=== PATIENT | male | born 1945 | race Caucasian/White ===

== ENCOUNTER → 2017-08-31 | Outpatient (CLI) | payer MEDICARE ==
[2017-08-31 09:21] LABS: Basophils # (auto) 0.1 uL; Basophils % (auto) 0.9 % (0.0-2.0); Eosinophils # (auto) 0.6 uL; Eosinophils % (auto) 8.2 % (0.0-7.0); Hematocrit 46.1 % (41.0-53.0); Hemoglobin 15.9 g/dL (13.5-17.5); Lymphocytes # (auto) 1.7 uL; Lymphocytes % (auto) 23.2 % (10.0-50.0); Mean Corpuscular Hemoglobin 30.9 pg (28.0-32.0); Mean Corpuscular Hgb Conc. 34.5 g/dL (32.0-36.0); Mean Corpuscular Volume 89.3 fL (80.0-100.0); Monocytes # (auto) 0.4 uL; Monocytes % (auto) 5.6 % (0.0-12.0); Neutrophils # (auto) 4.4 uL; Neutrophils % (auto) 62.1 % (37.0-80.0); Nucleated Red Blood Cells % 0.1 %; Platelet Count (auto) 208 10^3/uL (140-450); Red Blood Cells 5.17 10^6/uL (4.5-5.90); Red Cell Distribution Width 13.5 % (11.8-14.3); White Blood Cell 7.2 10^3/uL (4.4-10.8)
[2017-08-31 09:54] LABS: Albumin 4.1 g/dL (3.4-5.0); BUN/Creatinine Ratio 13.4; Bilirubin, Total 0.8 mg/dL (0.2-1.0); Calcium 8.9 mg/dL (8.5-10.1); Potassium 3.2 mmol/L (3.5-5.1); Total Protein 7.2 g/dL (6.4-8.2)
== END | disposition home or self-care (01) ==
LOC: LAB 08:38
PROVIDERS: ATTEND Nurse Practitioner
DX: E78.5 Hyperlipidemia, unspecified (principal); E11.9 Type 2 diabetes mellitus without complications; Z79.899 Other long term (current) drug therapy
CPT/HCPCS: 36415; 80053; 80061; 82306; 83036; 84443; 85025

== ENCOUNTER → 2018-02-15 | Outpatient (CLI) | payer MEDICARE ==
[2018-02-15 08:06] LABS: Basophils # (auto) 0.1 uL; Eosinophils # (auto) 0.7 uL; Eosinophils % (auto) 10.4 % (0.0-7.0); Hematocrit 47.6 % (41.0-53.0); Hemoglobin 16.2 g/dL (13.5-17.5); Lymphocytes # (auto) 1.4 uL; Lymphocytes % (auto) 20.6 % (10.0-50.0); Mean Corpuscular Hemoglobin 31.3 pg (28.0-32.0); Mean Corpuscular Hgb Conc. 34.1 g/dL (32.0-36.0); Mean Corpuscular Volume 91.8 fL (80.0-100.0); Monocytes # (auto) 0.3 uL; Neutrophils # (auto) 4.3 uL; Platelet Count (auto) 262 10^3/uL (140-450); Red Blood Cells 5.18 10^6/uL (4.5-5.90); Red Cell Distribution Width 14.2 % (11.8-14.3); White Blood Cell 6.9 10^3/uL (4.4-10.8)
[2018-02-15 08:14] LABS: Urine Bacteria FEW /hpf (None Seen); Urine Blood TRACE /uL (Negative); Urine Specific Gravity 1.012 (1.001-1.035); Urine WBC 1 /hpf (0 - 3)
[2018-02-15 08:25] LABS: Albumin 3.7 g/dL (3.4-5.0); BUN/Creatinine Ratio 16.5; Potassium 3.4 mmol/L (3.5-5.1)
[2018-02-15 08:30] LABS: Bilirubin, Total 0.8 mg/dL (0.2-1.0); Total Protein 7.4 g/dL (6.4-8.2)
== END | disposition home or self-care (01) ==
LOC: LAB 07:47
PROVIDERS: ATTEND Nurse Practitioner
DX: E11.9 Type 2 diabetes mellitus without complications (principal); E78.5 Hyperlipidemia, unspecified; J44.9 Chronic obstructive pulmonary disease, unspecified; Z79.899 Other long term (current) drug therapy
CPT/HCPCS: 36415; 80053; 80061; 81001; 82043; 82306; 83036; 85025

== ENCOUNTER 2019-04-21 11:22 | Inpatient (IN) | payer MEDICARE ==
[~2019-04-21] VITALS: Ht 185.4 cm; Wt 97.0 kg
[2019-04-21] MEDS ORDERED: FUROSEMIDE 40 MG/4 ML VIAL IV ONE (11:45)
[2019-04-21 12:11] LABS: Basophils # (auto) 0 uL; Basophils % (auto) 0.6 % (0.0-2.0); Eosinophils # (auto) 0.1 uL; Eosinophils % (auto) 0.9 % (0.0-7.0); Hematocrit 45.5 % (41.0-53.0); Hemoglobin 15.3 g/dL (13.5-17.5); Lymphocytes # (auto) 0.7 uL; Lymphocytes % (auto) 10.3 % (10.0-50.0); Mean Corpuscular Hemoglobin 31.4 pg (28.0-32.0); Mean Corpuscular Hgb Conc. 33.5 g/dL (32.0-36.0); Mean Corpuscular Volume 93.7 fL (80.0-100.0); Monocytes # (auto) 0.4 uL; Monocytes % (auto) 5.5 % (0.0-12.0); Neutrophils # (auto) 5.7 uL; Neutrophils % (auto) 82.7 % (37.0-80.0); Nucleated Red Blood Cells % 0.1 %; Platelet Count (auto) 191 10^3/uL (140-450); Red Blood Cells 4.86 10^6/uL (4.5-5.90); Red Cell Distribution Width 14.1 % (11.8-14.3); White Blood Cell 6.9 10^3/uL (4.4-10.8)
[2019-04-21 12:28] LABS: Albumin 3.8 g/dL (3.4-5.0); Calcium 9.2 mg/dL (8.5-10.1); Magnesium 2.2 mg/dL (1.6-2.6); Potassium 4.3 mmol/L (3.5-5.1)
[2019-04-21 12:34] LABS: Total Protein 7.1 g/dL (6.4-8.2)
[2019-04-21] MEDS ORDERED: ONDANSETRON HCL 4 MG/2 ML VIAL IV PRN (13:00)
[2019-04-21] MEDS ORDERED: NITROGLYCERIN 0.4 MG SL TAB SL PRN (13:00)
[2019-04-21] MEDS ORDERED: MORPHINE SULF INJ 2 MG/ML SYRINGE 1ML IV PRN ×3 (13:00→13:30)
[2019-04-21] MEDS ORDERED: ACETAMINOPHEN 500 MG TAB PO PRN ×2 (13:00→13:30)
[2019-04-21] MEDS ORDERED: hydrALAZINE HCL 20 MG/ML VL IV PRN (13:00)
[2019-04-21] MEDS ORDERED: HYDROcodone-ACET 5/325MG TAB PO PRN ×2 (13:00→13:30)
[2019-04-21] MEDS ORDERED: DEXTROSE (50%) 50ML SYRG IV PRN (13:00)
[2019-04-21] MEDS ORDERED: VANCOMYCIN PER PHARMACY IV SCH (13:30)
[2019-04-21] MEDS: RAMIPRIL 2.5 MG CAP PO SCH (13:42)
[2019-04-21 13:48] LABS: CRP High Sensitivity 1.35 mg/dL (< 0.3)
[2019-04-21] MEDS: metroNIDAZOLE 500MG/100ML 100 ML IV SCH ×2 (14:08→21:56)
[2019-04-21] MEDS: LEVOFLOXACIN 750MG 150 ML IV SCH (15:39)
[2019-04-21 17:18] VITALS: BP 155/101
[2019-04-21 17:38] VITALS: BP 155/101
[2019-04-21] MEDS: VANCOMYCIN 1GM/250ML 250 ML IV SCH (18:19)
[2019-04-21] MEDS: CARVEDILOL 3.125 MG TAB PO SCH (18:20)
[2019-04-21] MEDS: FUROSEMIDE 20 MG/2 ML VIAL IV SCH (18:20)
[2019-04-21] MEDS: ACCU-CHEK COMFORT CURVE STRIP VI SCH ×2 (18:26→21:55)
[2019-04-21] MEDS: InsuLIN REG 1unit/0.01ml Soln (100units/ml) SC SCH ×2 (18:26→21:55)
[2019-04-21] MEDS: ATORVASTATIN 20 MG TAB PO SCH (21:50)
[2019-04-21 22:00] VITALS: BP 125/78
[2019-04-21] MEDS: METOPROLOL TARTRATE 1MG/1ML-5ML VIAL IV SCH ×3 (22:02→22:14)
[2019-04-22] VITALS (7 sets, daily range): BP systolic 103–131; BP diastolic 68–88
[2019-04-22] MEDS: metroNIDAZOLE 500MG/100ML 100 ML IV SCH (05:35)
[2019-04-22] MEDS: FUROSEMIDE 20 MG/2 ML VIAL IV SCH (05:36)
[2019-04-22] MEDS: InsuLIN REG 1unit/0.01ml Soln (100units/ml) SC SCH ×4 (06:23→21:36)
[2019-04-22] MEDS: ACCU-CHEK COMFORT CURVE STRIP VI SCH ×4 (06:23→21:36)
[2019-04-22] MEDS: VANCOMYCIN 1GM/250ML 250 ML IV SCH (08:14)
[2019-04-22] MEDS ORDERED: ADENOSINE 93 MG in GIVE UN-DILUTED 0 ML IV STA (09:30)
[2019-04-22] MEDS: RAMIPRIL 2.5 MG CAP PO SCH (09:37)
[2019-04-22] MEDS: CARVEDILOL 3.125 MG TAB PO SCH ×2 (09:37→17:40)
[2019-04-22] MEDS: FAMOTIDINE 20 MG TAB PO SCH (09:37)
[2019-04-22] MEDS: LEVOFLOXACIN 750MG 150 ML IV SCH (09:42)
[2019-04-22] MEDS ORDERED: CARVEDILOL 3.125 MG TAB PO ONE (11:15)
[2019-04-22] MEDS ORDERED: FUROSEMIDE 20 MG/2 ML VIAL IV ONE (11:15)
[2019-04-22] MEDS ORDERED: FUROSEMIDE 40 MG/4 ML VIAL IV ONE (12:15)
[2019-04-22] MEDS ORDERED: ASPirin 81 mg TAB PO ONE (12:45)
[2019-04-22 13:45] LABS: Alcohol, Urine < 3.0 mg/dL (0-5); Amphetamine Screen, Urine NEGATIVE (NEGATIVE); Barbiturate Scree,Urine NEGATIVE (NEGATIVE); Benzodiazephine Screen, Urine NEGATIVE (NEGATIVE); Cannabinoid Screen, Urine NEGATIVE (NEGATIVE); Cocaine Screen, Urine NEGATIVE (NEGATIVE); Opiate Scree,Urine NEGATIVE (NEGATIVE); Phencyclidine Screen, Urine NEGATIVE (NEGATIVE)
[2019-04-22] MEDS: FUROSEMIDE 40 MG/4 ML VIAL IV SCH (17:39)
[2019-04-22] MEDS ORDERED: FUROSEMIDE 20 MG/2 ML VIAL IV SCH (18:00)
[2019-04-22] MEDS: ATORVASTATIN 20 MG TAB PO SCH (21:36)
[2019-04-23 05:00] VITALS: BP 141/97
[2019-04-23] MEDS: FUROSEMIDE 40 MG/4 ML VIAL IV SCH ×2 (05:31→18:37)
[2019-04-23 06:17] LABS: INR 1.26 (0.9-1.15); Partial Thromboplastin Time 32.2 sec (23.64-32.05)
[2019-04-23 06:26] LABS: Potassium 4.1 mmol/L (3.5-5.1)
[2019-04-23] MEDS: ACCU-CHEK COMFORT CURVE STRIP VI SCH ×4 (06:33→22:00)
[2019-04-23] MEDS: InsuLIN REG 1unit/0.01ml Soln (100units/ml) SC SCH ×4 (06:34→22:00)
[2019-04-23 06:35] LABS: BUN/Creatinine Ratio 25.8; Calcium 8.8 mg/dL (8.5-10.1)
[2019-04-23] MEDS: CARVEDILOL 3.125 MG TAB PO SCH (08:00)
[2019-04-23 09:00] VITALS: BP 140/90
[2019-04-23] MEDS: ENOXAPARIN SOD 40 MG/0.4 ML SYRINGE SC SCH ×2 (10:00→15:45)
[2019-04-23] MEDS: FAMOTIDINE 20 MG TAB PO SCH (10:00)
[2019-04-23] MEDS: ASPirin 81 mg TAB PO SCH ×2 (10:00→15:44)
[2019-04-23] MEDS ORDERED: ACETYLCYSTEINE ORAL for CIN 20%(200MG/ML) 4ML PO SCH (10:00)
[2019-04-23 11:19] LABS: Urine Bacteria NONE SEEN /hpf (None Seen); Urine Blood Negative /uL (Negative); Urine Hyaline Cast FEW /lpf (0 - 2); Urine WBC <1 /hpf (0 - 3)
[2019-04-23] MEDS ORDERED: IODIXANOL 320MG/ML 100ML BTL IV ONE ×2 (11:32→12:24)
[2019-04-23] MEDS ORDERED: LIDOCAINE 2%HCL (LOCAL ANESTH.) INJ 20ML MDV ONE (11:32)
[2019-04-23] MEDS ORDERED: fentaNYL CITRATE 100 MCG/2 ML VL ONE (12:23)
[2019-04-23] MEDS ORDERED: MIDAZOLAM HCL 1MG/1ML-2 ML VIAL ONE (12:24)
[2019-04-23] MEDS ORDERED: SODIUM CHL 0.9% 50 ML ONE (12:24)
[2019-04-23] MEDS ORDERED: ANGIOMAX 250 MG VIAL IV ONE (12:24)
[2019-04-23 14:16] VITALS: BP 129/91
[2019-04-23 15:16] VITALS: BP 141/99
[2019-04-23] MEDS: RAMIPRIL 2.5 MG CAP PO SCH (15:44)
[2019-04-23] MEDS: ACETYLCYSTEINE ORAL for CIN 20%(200MG/ML) 4ML PO SCH ×2 (15:45→22:00)
[2019-04-23 17:00] VITALS: BP 127/84
[2019-04-23] MEDS: ATORVASTATIN 20 MG TAB PO SCH (22:00)
[2019-04-23] MEDS: CARVEDILOL 12.5 MG TAB PO SCH (22:00)
[2019-04-23 22:53] VITALS: BP 133/87
[2019-04-24 05:24] VITALS: BP 117/82
[2019-04-24] MEDS: FUROSEMIDE 40 MG/4 ML VIAL IV SCH (06:20)
[2019-04-24] MEDS: ACCU-CHEK COMFORT CURVE STRIP VI SCH ×4 (06:28→21:51)
[2019-04-24] MEDS: InsuLIN REG 1unit/0.01ml Soln (100units/ml) SC SCH ×4 (06:28→21:52)
[2019-04-24 06:48] LABS: Potassium 4.3 mmol/L (3.5-5.1)
[2019-04-24 06:53] LABS: BUN/Creatinine Ratio 25.4; Calcium 8.7 mg/dL (8.5-10.1)
[2019-04-24 08:38] VITALS: BP 120/85
[2019-04-24] MEDS: FAMOTIDINE 20 MG TAB PO SCH (10:27)
[2019-04-24] MEDS: ASPirin 81 mg TAB PO SCH (10:28)
[2019-04-24] MEDS: CARVEDILOL 12.5 MG TAB PO SCH ×2 (10:28→21:51)
[2019-04-24] MEDS: ENOXAPARIN SOD 40 MG/0.4 ML SYRINGE SC SCH (10:28)
[2019-04-24] MEDS: ACETYLCYSTEINE ORAL for CIN 20%(200MG/ML) 4ML PO SCH ×2 (10:29→22:07)
[2019-04-24 13:00] VITALS: BP_SYST 100; BP_SYST 95; BP_DIAS 59; BP_DIAS 62
[2019-04-24 17:00] VITALS: BP 122/53
[2019-04-24 17:12] LABS: Basophils # (auto) 0 uL; Basophils % (auto) 0.7 % (0.0-2.0); Eosinophils # (auto) 0.1 uL; Eosinophils % (auto) 1.5 % (0.0-7.0); Hematocrit 43.5 % (41.0-53.0); Hemoglobin 14.4 g/dL (13.5-17.5); Lymphocytes # (auto) 0.8 uL; Lymphocytes % (auto) 13.1 % (10.0-50.0); Mean Corpuscular Hemoglobin 31.1 pg (28.0-32.0); Mean Corpuscular Hgb Conc. 33.1 g/dL (32.0-36.0); Mean Corpuscular Volume 93.8 fL (80.0-100.0); Monocytes # (auto) 0.5 uL; Monocytes % (auto) 8.3 % (0.0-12.0); Neutrophils # (auto) 4.9 uL; Neutrophils % (auto) 76.4 % (37.0-80.0); Platelet Count (auto) 167 10^3/uL (140-450); Red Blood Cells 4.64 10^6/uL (4.5-5.90); Red Cell Distribution Width 13.9 % (11.8-14.3); White Blood Cell 6.5 10^3/uL (4.4-10.8)
[2019-04-24 20:10] VITALS: BP 105/63
[2019-04-24] MEDS: ATORVASTATIN 20 MG TAB PO SCH (21:51)
[2019-04-24 22:00] VITALS: BP 105/63
[2019-04-24] MEDS ORDERED: SODIUM CHLORIDE 0.9% 1,000 ML IV SCH (23:00)
[2019-04-25 04:54] VITALS: BP 117/77
[2019-04-25 06:03] LABS: Basophils # (auto) 0 uL; Basophils % (auto) 0.7 % (0.0-2.0); Eosinophils # (auto) 0.1 uL; Hemoglobin 14.3 g/dL (13.5-17.5); Lymphocytes # (auto) 0.9 uL; Lymphocytes % (auto) 13.8 % (10.0-50.0); Mean Corpuscular Hemoglobin 31.3 pg (28.0-32.0); Mean Corpuscular Hgb Conc. 33.2 g/dL (32.0-36.0); Mean Corpuscular Volume 94.4 fL (80.0-100.0); Monocytes # (auto) 0.7 uL; Monocytes % (auto) 10.6 % (0.0-12.0); Neutrophils # (auto) 4.7 uL; Neutrophils % (auto) 72.9 % (37.0-80.0); Nucleated Red Blood Cells % 0.1 %; Platelet Count (auto) 149 10^3/uL (140-450); Red Blood Cells 4.55 10^6/uL (4.5-5.90); Red Cell Distribution Width 13.8 % (11.8-14.3); White Blood Cell 6.5 10^3/uL (4.4-10.8)
[2019-04-25] MEDS: InsuLIN REG 1unit/0.01ml Soln (100units/ml) SC SCH ×4 (06:08→22:18)
[2019-04-25] MEDS: ACCU-CHEK COMFORT CURVE STRIP VI SCH ×4 (06:08→22:12)
[2019-04-25] MEDS: ASPirin 81 mg TAB PO SCH (06:09)
[2019-04-25] MEDS: CARVEDILOL 12.5 MG TAB PO SCH ×2 (06:10→22:09)
[2019-04-25 06:15] LABS: BUN/Creatinine Ratio 30.8; Calcium 8.8 mg/dL (8.5-10.1); Potassium 4.3 mmol/L (3.5-5.1)
[2019-04-25 06:18] LABS: INR 1.26 (0.9-1.15); Partial Thromboplastin Time 30.8 sec (23.64-32.05)
[2019-04-25] MEDS ORDERED: LIDOCAINE 2%HCL (LOCAL ANESTH.) INJ 20ML MDV ONE ×2 (07:10→08:53)
[2019-04-25] MEDS ORDERED: IOHEXOL 350 MG/ML 100ML IJ ONE ×2 (07:10→08:34)
[2019-04-25] MEDS ORDERED: ANGIOMAX 250 MG VIAL IV ONE ×2 (08:22→08:34)
[2019-04-25] MEDS ORDERED: MIDAZOLAM HCL 1MG/1ML-2 ML VIAL ONE (08:22)
[2019-04-25] MEDS ORDERED: fentaNYL CITRATE 100 MCG/2 ML VL ONE (08:22)
[2019-04-25] MEDS ORDERED: SODIUM CHL 0.9% 50 ML ONE ×2 (08:22→08:34)
[2019-04-25] MEDS ORDERED: EPINEPHrine HCL 1 MG/10 ML SYRG ONE (08:33)
[2019-04-25] MEDS ORDERED: DOPamine 1600MCG/ML D5W 0 ML IV ONE (08:42)
[2019-04-25] MEDS ORDERED: IODIXANOL 320MG/ML 100ML BTL IV ONE (09:38)
[2019-04-25] MEDS ORDERED: TICAGRELOR 90 MG TAB ONE (09:52)
[2019-04-25] MEDS: ENOXAPARIN SOD 40 MG/0.4 ML SYRINGE SC SCH (10:00)
[2019-04-25] MEDS: FAMOTIDINE 20 MG TAB PO SCH (10:00)
[2019-04-25] MEDS ORDERED: SODIUM CHLORIDE 0.9% 1,000 ML IV SCH (12:15)
[2019-04-25 17:00] VITALS: BP 123/75
[2019-04-25 22:00] VITALS: BP 109/73
[2019-04-25] MEDS: TICAGRELOR 90 MG TAB PO SCH (22:00)
[2019-04-25] MEDS: ATORVASTATIN 20 MG TAB PO SCH (22:08)
[2019-04-26 05:00] VITALS: BP 105/70
[2019-04-26] MEDS: InsuLIN REG 1unit/0.01ml Soln (100units/ml) SC SCH ×5 (06:43→22:12)
[2019-04-26] MEDS: ACCU-CHEK COMFORT CURVE STRIP VI SCH ×4 (06:43→22:12)
[2019-04-26 06:59] LABS: BUN/Creatinine Ratio 31.5; Calcium 8.6 mg/dL (8.5-10.1); Potassium 4.9 mmol/L (3.5-5.1)
[2019-04-26 09:00] VITALS: BP 102/59
[2019-04-26] MEDS ORDERED: FUROSEMIDE 40 MG/4 ML VIAL IV SCH (10:00)
[2019-04-26] MEDS: CARVEDILOL 12.5 MG TAB PO SCH ×3 (10:00→22:11)
[2019-04-26] MEDS: acetaZOLAMIDE SODIUM 500 MG VL IV SCH ×2 (10:01→22:12)
[2019-04-26] MEDS: TICAGRELOR 90 MG TAB PO SCH ×2 (10:02→22:11)
[2019-04-26] MEDS: ASPirin 81 mg TAB PO SCH (10:04)
[2019-04-26] MEDS: FAMOTIDINE 20 MG TAB PO SCH (10:05)
[2019-04-26] MEDS: ENOXAPARIN SOD 40 MG/0.4 ML SYRINGE SC SCH (10:06)
[2019-04-26 12:43] VITALS: BP 96/54
[2019-04-26 17:00] VITALS: BP 110/62
[2019-04-26] MEDS: ATORVASTATIN 20 MG TAB PO SCH (22:11)
[2019-04-26 22:30] VITALS: BP 107/62
[2019-04-27 05:35] VITALS: BP 100/56
[2019-04-27 06:03] LABS: BUN/Creatinine Ratio 30.8; Calcium 8.5 mg/dL (8.5-10.1)
[2019-04-27] MEDS: ACCU-CHEK COMFORT CURVE STRIP VI SCH ×4 (06:44→22:29)
[2019-04-27] MEDS: InsuLIN REG 1unit/0.01ml Soln (100units/ml) SC SCH ×4 (06:45→22:29)
[2019-04-27 08:00] VITALS: BP 109/76
[2019-04-27 09:00] VITALS: BP 110/58
[2019-04-27] MEDS: CARVEDILOL 12.5 MG TAB PO SCH ×2 (10:00→22:29)
[2019-04-27] MEDS ORDERED: IPRATROPIUM BROM 0.5 MG/2.5ML INH SOL NEB PRN (10:15)
[2019-04-27] MEDS ORDERED: ALBUTEROL SULF 2.5 MG/0.5ML(0.5%) NEB SOLN NEB PRN (10:15)
[2019-04-27] MEDS: acetaZOLAMIDE SODIUM 500 MG VL IV SCH ×2 (10:38→22:28)
[2019-04-27] MEDS: TICAGRELOR 90 MG TAB PO SCH ×2 (10:39→22:28)
[2019-04-27] MEDS: ASPirin 81 mg TAB PO SCH (10:39)
[2019-04-27] MEDS: FAMOTIDINE 20 MG TAB PO SCH (10:39)
[2019-04-27] MEDS: ENOXAPARIN SOD 40 MG/0.4 ML SYRINGE SC SCH (10:40)
[2019-04-27] MEDS ORDERED: ALBUMIN 25% 100 ML IV ONE (12:00)
[2019-04-27] MEDS: IPRATROPIUM BROM 0.5 MG/2.5ML INH SOL NEB SCH ×2 (12:05→18:35)
[2019-04-27] MEDS: LEVALBUTEROL HCL 1.25 MG/3 ML NEB NEB SCH ×2 (12:05→18:35)
[2019-04-27 13:00] VITALS: BP 105/58
[2019-04-27 17:00] VITALS: BP 117/63
[2019-04-27 22:00] VITALS: BP 108/58
[2019-04-27] MEDS: ATORVASTATIN 20 MG TAB PO SCH (22:29)
[2019-04-28] MEDS: LEVALBUTEROL HCL 1.25 MG/3 ML NEB NEB SCH ×4 (00:16→19:32)
[2019-04-28] MEDS: IPRATROPIUM BROM 0.5 MG/2.5ML INH SOL NEB SCH ×4 (00:16→19:32)
[2019-04-28 05:00] VITALS: BP 93/49
[2019-04-28] MEDS: InsuLIN REG 1unit/0.01ml Soln (100units/ml) SC SCH ×4 (06:30→21:35)
[2019-04-28] MEDS: ACCU-CHEK COMFORT CURVE STRIP VI SCH ×4 (06:30→21:35)
[2019-04-28] MEDS: TICAGRELOR 90 MG TAB PO SCH ×2 (09:03→21:35)
[2019-04-28] MEDS: acetaZOLAMIDE SODIUM 500 MG VL IV SCH (09:03)
[2019-04-28] MEDS: ENOXAPARIN SOD 40 MG/0.4 ML SYRINGE SC SCH (09:03)
[2019-04-28] MEDS: CARVEDILOL 12.5 MG TAB PO SCH (09:04)
[2019-04-28] MEDS: FAMOTIDINE 20 MG TAB PO SCH (09:04)
[2019-04-28] MEDS: ASPirin 81 mg TAB PO SCH (09:04)
[2019-04-28 09:23] VITALS: BP 103/57
[2019-04-28 10:45] LABS: Calcium 8.7 mg/dL (8.5-10.1)
[2019-04-28] MEDS: MIDODRINE HCL 10 MG TAB PO SCH ×2 (12:08→18:28)
[2019-04-28] MEDS ORDERED: metOLazone 5 MG TAB PO ONE (13:00)
[2019-04-28 13:30] VITALS: BP 105/59
[2019-04-28 15:43] VITALS: BP 110/61
[2019-04-28 17:02] VITALS: BP 106/57
[2019-04-28] MEDS: FUROSEMIDE 40 MG TAB PO SCH (18:28)
[2019-04-28] MEDS: ATORVASTATIN 20 MG TAB PO SCH (21:35)
[2019-04-28] MEDS: CARVEDILOL 3.125 MG TAB PO SCH (21:36)
[2019-04-28 21:57] VITALS: BP 108/55
[2019-04-29] MEDS: IPRATROPIUM BROM 0.5 MG/2.5ML INH SOL NEB SCH ×4 (00:35→18:21)
[2019-04-29] MEDS: LEVALBUTEROL HCL 1.25 MG/3 ML NEB NEB SCH ×4 (00:35→18:21)
[2019-04-29 05:41] VITALS: BP 122/74
[2019-04-29] MEDS: FUROSEMIDE 40 MG TAB PO SCH ×2 (06:14→18:45)
[2019-04-29] MEDS: MIDODRINE HCL 10 MG TAB PO SCH ×3 (06:14→18:45)
[2019-04-29] MEDS: ACCU-CHEK COMFORT CURVE STRIP VI SCH ×4 (06:15→22:49)
[2019-04-29] MEDS: InsuLIN REG 1unit/0.01ml Soln (100units/ml) SC SCH ×4 (06:15→22:50)
[2019-04-29 06:27] LABS: Calcium 8.8 mg/dL (8.5-10.1)
[2019-04-29 08:00] VITALS: BP 126/68
[2019-04-29 08:42] VITALS: BP 126/68
[2019-04-29] MEDS: ENOXAPARIN SOD 40 MG/0.4 ML SYRINGE SC SCH (10:14)
[2019-04-29] MEDS: TICAGRELOR 90 MG TAB PO SCH ×2 (10:15→22:00)
[2019-04-29] MEDS: FAMOTIDINE 20 MG TAB PO SCH (10:15)
[2019-04-29] MEDS: ASPirin 81 mg TAB PO SCH (10:15)
[2019-04-29] MEDS: CARVEDILOL 3.125 MG TAB PO SCH ×2 (10:15→22:41)
[2019-04-29 12:11] LABS: INR 1.18 (0.9-1.15); Partial Thromboplastin Time 33.1 sec (23.64-32.05)
[2019-04-29 13:03] VITALS: BP 119/64
[2019-04-29] MEDS ORDERED: metOLazone 5 MG TAB PO ONE (14:00)
[2019-04-29 17:24] VITALS: BP 115/59
[2019-04-29 22:00] VITALS: BP 111/58
[2019-04-29] MEDS: ATORVASTATIN 20 MG TAB PO SCH (22:41)
[2019-04-30] MEDS: IPRATROPIUM BROM 0.5 MG/2.5ML INH SOL NEB SCH ×4 (00:06→19:12)
[2019-04-30] MEDS: LEVALBUTEROL HCL 1.25 MG/3 ML NEB NEB SCH ×4 (00:06→19:12)
[2019-04-30 05:17] VITALS: BP 109/55
[2019-04-30] MEDS: MIDODRINE HCL 10 MG TAB PO SCH (06:38)
[2019-04-30] MEDS: FUROSEMIDE 40 MG TAB PO SCH ×2 (06:38→18:09)
[2019-04-30] MEDS: ACCU-CHEK COMFORT CURVE STRIP VI SCH ×3 (06:44→21:59)
[2019-04-30] MEDS: InsuLIN REG 1unit/0.01ml Soln (100units/ml) SC SCH ×3 (06:44→22:00)
[2019-04-30 06:56] LABS: BUN/Creatinine Ratio 26.2; Calcium 8.7 mg/dL (8.5-10.1); Potassium 3.7 mmol/L (3.5-5.1)
[2019-04-30 09:00] VITALS: BP 109/55
[2019-04-30] MEDS: FAMOTIDINE 20 MG TAB PO SCH (09:39)
[2019-04-30] MEDS: ASPirin 81 mg TAB PO SCH (09:39)
[2019-04-30] MEDS: ENOXAPARIN SOD 40 MG/0.4 ML SYRINGE SC SCH (09:39)
[2019-04-30] MEDS: CARVEDILOL 3.125 MG TAB PO SCH ×2 (10:00→21:51)
[2019-04-30] MEDS: TICAGRELOR 90 MG TAB PO SCH ×2 (10:00→21:51)
[2019-04-30] MEDS ORDERED: ALBUAER3 IN (13:07)
[2019-04-30 13:28] VITALS: BP 123/69
[2019-04-30 16:59] VITALS: BP 110/49
[2019-04-30] MEDS: ATORVASTATIN 20 MG TAB PO SCH (21:51)
[2019-04-30 22:00] VITALS: BP 106/50
[2019-04-30] MEDS ORDERED: MIDODRINE HCL 10 MG TAB PO SCH (22:00)
[2019-05-01] MEDS: LEVALBUTEROL HCL 1.25 MG/3 ML NEB NEB SCH ×2 (01:01→06:00)
[2019-05-01] MEDS: IPRATROPIUM BROM 0.5 MG/2.5ML INH SOL NEB SCH ×2 (01:02→06:00)
[2019-05-01 05:07] VITALS: BP 100/54
[2019-05-01] MEDS: FUROSEMIDE 40 MG TAB PO SCH (06:47)
[2019-05-01] MEDS: ACCU-CHEK COMFORT CURVE STRIP VI SCH ×2 (06:47→11:47)
[2019-05-01] MEDS: InsuLIN REG 1unit/0.01ml Soln (100units/ml) SC SCH ×2 (06:51→12:32)
[2019-05-01 08:00] VITALS: BP 108/103
[2019-05-01 09:00] VITALS: BP 108/63
[2019-05-01] MEDS ORDERED: ENALAPRIL MALEATE 2.5 MG TAB PO SCH (10:00)
[2019-05-01] MEDS: CARVEDILOL 3.125 MG TAB PO SCH (10:42)
[2019-05-01] MEDS: FAMOTIDINE 20 MG TAB PO SCH (10:42)
[2019-05-01] MEDS: ASPirin 81 mg TAB PO SCH (10:43)
[2019-05-01] MEDS: TICAGRELOR 90 MG TAB PO SCH (10:43)
[2019-05-01] MEDS ORDERED: metFORMIN HYDROCHLORIDE 500 MG TAB PO SCH (12:00)
[2019-05-01 12:52] VITALS: BP 111/65
[2019-05-01 13:00] VITALS: BP 111/65
== END 2019-05-01 14:30 | DRG 215 ==
LOC: ER 11:30 → TELE 11:31 → TELE-CENTR 16:59
PROVIDERS: ADMIT Nurse Practitioner Acute Care; ATTEND Internal Medicine
PROC: 4A023N7 Measurement of Cardiac Sampling and Pressure, Left Heart, Percutaneous Approach (ICD-10-PCS; principal; 2019-04-23)
PROC: B2111ZZ Fluoroscopy of Multiple Coronary Arteries using Low Osmolar Contrast (ICD-10-PCS; 2019-04-23)
PROC: B2151ZZ Fluoroscopy of Left Heart using Low Osmolar Contrast (ICD-10-PCS; 2019-04-23)
PROC: 5A1213Z Performance of Cardiac Pacing, Intermittent (ICD-10-PCS; 2019-04-23)
PROC: 02HA3RJ Insertion of Short-term External Heart Assist System into Heart, Intraoperative, Percutaneous Approach (ICD-10-PCS; 2019-04-25)
PROC: 027136Z Dilation of Coronary Artery, Two Arteries with Three Drug-eluting Intraluminal Devices, Percutaneous Approach (ICD-10-PCS; 2019-04-25)
PROC: X2C0361 Extirpation of Matter from Coronary Artery, One Artery using Orbital Atherectomy Technology, Percutaneous Approach, New Technology Group 1 (ICD-10-PCS; 2019-04-25)
PROC: 5A0221D Assistance with Cardiac Output using Impeller Pump, Continuous (ICD-10-PCS; 2019-04-25)
DX: I25.10 Atherosclerotic heart disease of native coronary artery without angina pectoris (principal); I50.43 Acute on chronic combined systolic (congestive) and diastolic (congestive) heart failure; N17.0 Acute kidney failure with tubular necrosis; I13.0 Hypertensive heart and chronic kidney disease with heart failure and stage 1 through stage 4 chronic kidney disease, or unspecified chronic kidney disease; L03.116 Cellulitis of left lower limb; L03.115 Cellulitis of right lower limb; L97.419 Non-pressure chronic ulcer of right heel and midfoot with unspecified severity; I42.9 Cardiomyopathy, unspecified; E11.22 Type 2 diabetes mellitus with diabetic chronic kidney disease; J44.9 Chronic obstructive pulmonary disease, unspecified; N18.3 Chronic kidney disease, stage 3 (moderate); E11.621 Type 2 diabetes mellitus with foot ulcer; I87.2 Venous insufficiency (chronic) (peripheral); E78.5 Hyperlipidemia, unspecified; E11.51 Type 2 diabetes mellitus with diabetic peripheral angiopathy without gangrene; Z98.61 Coronary angioplasty status; Z91.19 Patient's noncompliance with other medical treatment and regimen; Z90.49 Acquired absence of other specified parts of digestive tract; Z87.442 Personal history of urinary calculi; Z82.3 Family history of stroke; Z80.9 Family history of malignant neoplasm, unspecified; Z91.14 Patient's other noncompliance with medication regimen
CPT/HCPCS: 36415; 71045; 71046; 76604; 78452; 80048; 80053; 80061; 80202; 80307; 81001; 82040; 82565; 82962; 83036; 83735; 83880; 84484; 85025; 85610; 85730; 86141; 86850; 86900; 86901; 92924; 92928; 92929; 93005; 93017; 93306; 93458; 93926; 93970; 94640; 96365; 96375; 97116; 97530; 99152; 99153; C1724; C1751; C1769; C1874; G0378; J0153; J1815; J1956; J2250; J3490; P9047; Q9967